=== PATIENT | female | born 1960 | race Two or more races ===

== ENCOUNTER 2017-02-08 07:35 | Day surgery (SDC) | payer OTHER ==
[2017-02-08 08:39] VITALS: BMI 44.8
[2017-02-08] MEDS: TOBRA 0.3%/DEXAMETH 0.1% OPHTHALMIC SUSP 2.5 ML BTL ONE ×2 (08:45→09:00)
[2017-02-08] MEDS ORDERED: methylPREDNISolone NA SUCC 40 MG/1 ML VIAL ONE (09:37)
[2017-02-08] MEDS ORDERED: LIDOCAINE 1% P/F 10 MG/ML VIAL ONE (09:37)
[2017-02-08] MEDS ORDERED: LIDOCAINE HCL/PF 2% SDV 5ML VIAL ONE (09:38)
[2017-02-08] MEDS ORDERED: PHENYLEPHRINE 2.5% OPHTH SOLN 15 ML BOTTLE ONE (09:38)
[2017-02-08] MEDS ORDERED: BSS (NA/CA/MG/K) BALANCED SALT SOLUTION OPHTH SOLN 15 ML BOTTLE ONE (09:38)
[2017-02-08] MEDS ORDERED: BUPIVACAINE HCL/PF 0.5% (5MG/ML) 10 ML VIAL ONE (09:38)
[2017-02-08] MEDS ORDERED: MIDAZOLAM HCL 2 MG/2 ML SINGLE DOSE VIAL ONE ×3 (09:59→10:17)
[2017-02-08] MEDS ORDERED: ACETAMINOPHEN 325 MG TABLET (FP) PO PRN (11:19)
[2017-02-08] MEDS ORDERED: MITOMYCIN 0.02% EYE DROPS - 2ML VIAL IO ONE (12:15)
[2017-02-08 12:26] VITALS: BP 110/65; PULSE 70; TEMP 98
--- NOTE | 2017-02-08 12:58 | OP ---
DATE OF OPERATION: 02/08/2017 PROCEDURE: Excision of pterygium of the left eye with repair by ocular surface reconstruction by use of conjunctival autograft of the left eye. SURGEONS: Marquez Dennis MD GR[employer]ING [employer]ER SURGEON: Birdie Hill MD COMPLICATIONS: None. PREOPERATIVE DIAGNOSIS: Pterygium, left eye. POSTOPERATIVE DIAGNOSIS: Pterygium, left eye, with large conjunctival defect. ANESTHESIA: Local standby. ANESTHESIOLOGIST: Misael Alcala MD FINDINGS AND PROCEDURES: After successful lid block with 2% Xylocaine and epinephrine was given, subcutaneously in the upper and the lower lids in a V-like fashion starting temporally, patient was then prepped and draped in the usual manner, exposing the left eye. Then, Tegaderm strips and a lid speculum were inserted in the eye, and the microscope brought in a position over the eye. A superior traction suture of 6-0 silk was placed at 12 o'clock, and the eye was put in the abducted position, and attention was focused on the head of the pterygium, which was lined with a marker as was the body of the pterygium. Then, the head was excised using a crescent blade, and after it had been outlined to a depth of about 1/3 corneal depth, this was carefully dissected free of the corneal surface, and then, proceeded nasally until the entire body of the pterygium was also dissected free from the underlying episclera. A slight bit of Wet-Field cautery was applied, and then, the defect was covered with mitomycin 0.2% soaked solutions, sponge-soaked Weck-Dang sponges were placed in the defect for approximately 2 minutes. These were then removed. Then, the area was copiously irrigated with BSS. Then, partial wound closure of the conjunctival defect was done with 2 interrupted 10-0 Ethilon sutures nasally. The resultant conjunctival defect 4 mm x 6 mm was then closed using conjunctival autograft which was taken from the patients same eye, with the stem cells oriented at the limbus. The closure was complete after a total of 7 more 10-0 Ethilon interrupted sutures were placed conjunctivally. At this point, the conjunctival autograft was nicely in place and flat, and no conjunctival defect remained, and the pupil was round and reactive, red reflex was present, and the globe had normal tension. Topical TobraDex ophthalmic solution and Maxitrol ophthalmic ointment were placed on the eye, and then, the Tegaderm strips and the lid speculum were removed from the eye. It should be noted that Bacitracin ointment was also placed. The Tegaderm strips and the lid speculum were removed from the eyelids. Lids were closed after the speculum had been removed, and a patch and shield were placed on the left eye, and the patient was then discharged from the operating room in good condition having tolerated the procedure well. Ruthann [id number]
== END 2017-02-08 12:15 | disposition home or self-care (01) ==
LOC: FASU 07:35
PROVIDERS: ATTEND Ophthalmology
PROC: 08U107Z Supplement of Left Eye with Autologous Tissue Substitute, Open Approach (ICD-10-PCS; principal; 2017-02-08 10:20)
DX: H11.002 Unspecified pterygium of left eye (principal); H11.89 Other specified disorders of conjunctiva